=== PATIENT | female | born 1995 ===

== ENCOUNTER 2023-07-13 15:53 | Outpatient (CLI) | payer OTHER | END 2023-07-13 16:01 | disposition home or self-care (01) | LOC: PRENATAL 15:53 | PROVIDERS: ATTEND Obstetrics & Gynecology Maternal & Fetal Medicine | DX: O35.3XX0 Maternal care for (suspected) damage to fetus from viral disease in mother, not applicable or unspecified (principal); O44.00 Complete placenta previa NOS or without hemorrhage, unspecified trimester; O10.019 Pre-existing essential hypertension complicating pregnancy, unspecified trimester; O09.819 Supervision of pregnancy resulting from assisted reproductive technology, unspecified trimester; Z3A.26 26 weeks gestation of pregnancy ==

== ENCOUNTER 2023-09-16 15:35 | Outpatient (CLI) | payer OTHER | END 2023-09-16 15:36 | disposition home or self-care (01) | LOC: PRENATAL 15:35 | PROVIDERS: ATTEND Obstetrics & Gynecology Maternal & Fetal Medicine | DX: O26.849 Uterine size-date discrepancy, unspecified trimester (principal); O36.8199 Decreased fetal movements, unspecified trimester, other fetus; O10.019 Pre-existing essential hypertension complicating pregnancy, unspecified trimester; O09.819 Supervision of pregnancy resulting from assisted reproductive technology, unspecified trimester; Z3A.35 35 weeks gestation of pregnancy ==

== ENCOUNTER 2023-09-29 20:46 | Inpatient (IN) | payer OTHER ==
[~2023-09-29] VITALS: Ht 157.5 cm; Wt 3.2 kg
[2023-09-29 21:59] LABS: HEMATOCRIT 33.2 % (36.0-45.00); HEMOGLOBIN 10.7 g/dL (12.0-15.00); MEAN CELL VOLUME 74.1 fL (80.00-100.00); MEAN CORPUSCULAR HGB CONC 32.4 g/dl (32.0-36.0); PH,URINE 6.5 (5.0-8.0); PLATELET COUNT 258 K/uL (150-450); RED BLOOD COUNT 4.48 M/uL (4.00-6.00); RED CELL DISTRIBUTION WIDTH 21.4 % (11.5-14.5); URINE APPEARANCE Cloudy; URINE BACTERIA 7069.6 uL (0.0-1933); URINE BILIRRUBIN Negative (NEGATIVE); URINE BLOOD Negative; URINE COLOR Yellow; URINE EPITHELIAL CELLS 78.3 uL (0.0-38.8); URINE GLUCOSE Negative (NEGATIVE); URINE LEUKOCYTE Moderate; URINE NITRATE Negative; URINE PROTEIN Negative (NEGATIVE); URINE RBC 11.7 uL (0.0-20.8); URINE UROBILINOGEN 0.2 E.U./dl; URINE WBC 142.8 uL (0.0-23.2)
[2023-09-29] MEDS ORDERED: IRON236 MG PO (22:05)
[2023-09-29] MEDS ORDERED: PRENATAL TABLE1 EAC1 PO (22:05)
[2023-09-29 22:25] LABS: INR < 0.93; PARTIAL THROMBOPLASTIN TIME 25.4 SECONDS (22.0-34.0); PROTHROMBIN TIME 9.8 SECONDS (9.0-11.5)
[2023-09-29 22:28] LABS: ALBUMIN 2.7 gm/dL (3.4-5.0); BILIRUBIN TOTAL 0.29 mg/dL (0.3-1.2); CALCIUM 10.5 mg/dL (8.5-10.1); CREATININE SERUM 0.61 mg/dL (0.55-1.02); GFR 116.79; GLOBULINA 3.7 G/DL (2.4-3.5); POTASSIUM 3.98 mEq/L (3.5-5.1); TOTAL PROTEIN 6.4 gm/dL (6.4-8.2)
[2023-10-01 02:05] LABS: URINE PROT QUANT 24HR 12.6 MG/DL
[2023-10-01 02:47] LABS: URINE PROT QUANT 24 HR 330.75 MG/24HR (42-225)
[2023-10-01] MEDS ORDERED: CEFAZOLIN SODIUM 1,000 MG VIAL IV ONE (08:00)
[2023-10-01] MEDS ORDERED: CEFAZOLIN SODIUM 1,000 MG VIAL IV SCH (08:45)
[2023-10-01] MEDS ORDERED: OXYTOCIN 10 UNITS/ML VIAL ONE (21:09)
[2023-10-01] MEDS ORDERED: ERYTHROMYCIN BASE 3.5 GM OINT...G. OP ONE (21:09)
[2023-10-01] MEDS ORDERED: RINGERS SOLUTION,LACTATED 1,000 ML IV SCH (22:15)
[2023-10-01] MEDS ORDERED: CHLORHEXIDINE GLUCONATE 120 ML BOTTLE TOP SCH (22:15)
[2023-10-01] MEDS ORDERED: ERYTHROMYCIN BASE 1 GM TUBE OP SCH (22:15)
[2023-10-01] MEDS ORDERED: OXYTOCIN 1,000 ML IV SCH (22:15)
[2023-10-01] MEDS ORDERED: SIMETHICONE 125 MG CAPSULE PO SCH (22:16)
[2023-10-02] MEDS ORDERED: PROMETHAZINE HCL 50 MG/ML AMPUL IV SCH
[2023-10-02] MEDS ORDERED: MEPERIDINE HCL/PF 50 MG/ML VIAL IV SCH
[2023-10-02 07:30] LABS: HEMATOCRIT 29.1 % (36.0-45.00); HEMOGLOBIN 9.4 g/dL (12.0-15.00); MEAN CORPUSCULAR HEMOGLOBIN 24.3 pg (27.00-32.0); MEAN CORPUSCULAR HGB CONC 32.4 g/dl (32.0-36.0); PLATELET COUNT 199 K/uL (150-450); RED BLOOD COUNT 3.88 M/uL (4.00-6.00); RED CELL DISTRIBUTION WIDTH 22.1 % (11.5-14.5)
[2023-10-02] MEDS ORDERED: ACETAMINOPHEN WITH CODEINE 1 UDTAB TABLET PO PRN (08:45)
[2023-10-02] MEDS ORDERED: NAPROXEN 500 MG TABLET PO SCH (09:00)
== END 2023-10-04 14:24 | disposition home or self-care (01) | DRG 787 ==
LOC: OB/GYN 20:46 → LDR 20:46 → O/R 10-01 21:41 → OB/GYN 10-01 23:18
PROVIDERS: Obstetrics & Gynecology; ADMIT Obstetrics & Gynecology; ATTEND Obstetrics & Gynecology
PROC: 4A1HXCZ Monitoring of Products of Conception, Cardiac Rate, External Approach (ICD-10-PCS; 2023-09-29)
PROC: BY4FZZZ Ultrasonography of Third Trimester, Single Fetus (ICD-10-PCS; 2023-09-30)
PROC: 10D00Z1 Extraction of Products of Conception, Low, Open Approach (ICD-10-PCS; principal; 2023-10-01 20:45)
DX: O32.1XX0 Maternal care for breech presentation, not applicable or unspecified (principal); O10.02 Pre-existing essential hypertension complicating childbirth; O13.4 Gestational [pregnancy-induced] hypertension without significant proteinuria, complicating childbirth; O11.4 Pre-existing hypertension with pre-eclampsia, complicating childbirth; O36.8130 Decreased fetal movements, third trimester, not applicable or unspecified; O26.843 Uterine size-date discrepancy, third trimester; Z3A.37 37 weeks gestation of pregnancy; Z37.0 Single live birth; Z20.822 Contact with and (suspected) exposure to COVID-19